=== PATIENT | female | born 1950 ===

== ENCOUNTER 2019-11-12 00:22 | Emergency (ER) | payer MEDICARE ==
[~2019-11-12] VITALS: Ht 162.6 cm; Wt 98.4 kg
[2019-11-12 00:45] LABS: BASOPHILS ABSOLUTE AUTO 0.05 K/mm3 (0.00-0.23); BASOPHILS PERCENT AUTO 0 % (0-2); EOSINOPHILS ABSOLUTE AUTO 0.05 K/mm3 (0.00-0.68); EOSINOPHILS PERCENT AUTO 0 % (0-6); Hematocrit 34.7 % (33.0-51.0); Hemoglobin 11.3 g/dL (11.5-16.0); IMMATURE GRAN ABSOLUTE AUTO 0.05 K/mm3 (0.00-0.10); IMMATURE GRAN PERCENT AUTO 0 % (0-1); LYMPHOCYTES ABSOLUTE AUTO 1.94 K/mm3 (0.84-5.20); LYMPHOCYTES PERCENT AUTO 17 % (21-46); MONOCYTES ABSOLUTE AUTO 0.81 K/mm3 (0.16-1.47); MONOCYTES PERCENT AUTO 7 % (4-13); Mean Corpuscular HGB 29.2 pg (26.0-34.0); Mean Corpuscular HGB Conc 32.6 g/dL (31.5-36.5); Mean Corpuscular Volume 90 fL (80-100); NEUTROPHILS ABSOLUTE AUTO 8.74 K/mm3 (1.96-9.15); NEUTROPHILS PERCENT AUTO 75 % (41-73); Platelet Count 291 K/mm3 (150-400); RDW Coefficient Variation 14.7 % (11.7-14.2); RDW Standard Deviation 48.7 fL (35.1-46.3); Red Blood Cell Count 3.87 M/mm3 (3.80-5.20); White Blood Cell Count 11.64 K/mm3 (4.00-11.30)
[2019-11-12 01:02] LABS: Albumin/Globulin Ratio 0.8 (0.8-1.8); Bilirubin, Total 0.1 mg/dL (0.1-1.0); Bun/Creatinine Ratio 18.1 (12.0-20.0); Calcium, Blood 8.6 mg/dL (8.5-10.1); Creatinine, Blood 1.82 mg/dL (0.40-1.00); Globulin, Blood 3.9 g/dL (2.2-4.0); Potassium, Blood 4.1 mmol/L (3.5-5.5); Total Protein, Blood 6.9 g/dL (6.4-8.2)
[2019-11-12] MEDS ORDERED: Metformin HCl1000 MG PO (01:20)
[2019-11-12] MEDS ORDERED: Metoprolol Tar100 MG PO (01:20)
[2019-11-12] MEDS ORDERED: AMLODIPINE BESY10 MG PO (01:20)
[2019-11-12] MEDS ORDERED: ZESTORETIC 20-121 EA PO (01:20)
[2019-11-12] MEDS ORDERED: SITA50T2 PO (01:20)
[2019-11-12] MEDS ORDERED: TOUJEO SOL300 UNIT/1 SC (01:21)
[2019-11-12] MEDS ORDERED: Humalog100 UNIT/3 SC (01:21)
[2019-11-12] MEDS ORDERED: ASPI325 PO (01:31)
[2019-11-12] MEDS ORDERED: Fish Oil 10001000 MG PO (01:32)
[2019-11-12] MEDS ORDERED: ROSUVASTATIN CA40 MG PO (01:34)
[2019-11-12 02:39] LABS: Source, Urine Voided
[2019-11-12 02:53] LABS: Bilirubin, Urine Neg (Neg); Blood, Urine 1+ (Neg); Glucose Qualitative, Urine Neg (Neg); Ketones, Urine Neg (Neg); Leukocyte Esterase, Urine 3+ (Neg); Nitrite, Urine Neg (Neg); Protein, Urine 2+ (Neg); Specific Gravity, Urine 1.015 (1.003-1.022); Urobilinogen, Urine NORM (Normal)
[2019-11-12 02:56] LABS: Appearance, Urine Hazy (Clear); Color, Urine Yellow (P-Yellow)
[2019-11-12 03:00] LABS: Bacteria Mod /hpf; Hyaline Casts 25-50 /lpf (0-2); Red Blood Cells, Urine Rare /hpf (0-2); Squamous Epithelial Cells Few /hpf (Few); White Blood Cells, Urine TNTC /hpf (0-5)
[2019-11-12] MEDS ORDERED: CEPH500 PO (05:06)
== END 2019-11-12 06:02 | disposition home or self-care (01) ==
LOC: ER 00:22
PROVIDERS: Emergency Medicine
DX: E11.65 Type 2 diabetes mellitus with hyperglycemia (principal); N39.0 Urinary tract infection, site not specified; I10 Essential (primary) hypertension; E78.5 Hyperlipidemia, unspecified; Z79.4 Long term (current) use of insulin; Z79.899 Other long term (current) drug therapy
CPT/HCPCS: 80053; 81001; 82947; 83690; 85025; 87086; 93005; 93010; 96365; 96375; 99285-25; J0696

== ENCOUNTER 2023-07-02 02:24 | Emergency (ER) | payer MEDICARE ==
[~2023-07-02] VITALS: Ht 162.6 cm; Wt 90.7 kg
[~2023-07-02 02:24] MED LIST: AMLODIPINE BESY10 MG PO; ASPI325 PO; CEPH500 PO; Fish Oil 10001000 MG PO; Humalog100 UNIT/3 SC; Metformin HCl1000 MG PO; Metoprolol Tar100 MG PO; ROSUVASTATIN CA40 MG PO; SITA50T2 PO; TOUJEO SOL300 UNIT/1 SC; ZESTORETIC 20-121 EA PO
[2023-07-02 02:32] VITALS: BP 164/82
[2023-07-02 02:53] LABS: BASOPHILS ABSOLUTE AUTO 0.06 K/mm3 (0.00-0.23); BASOPHILS PERCENT AUTO 1 % (0-2); EOSINOPHILS ABSOLUTE AUTO 0.14 K/mm3 (0.00-0.68); EOSINOPHILS PERCENT AUTO 1 % (0-6); Hematocrit 38.8 % (33.0-51.0); Hemoglobin 13.4 g/dL (11.5-16.0); IMMATURE GRAN ABSOLUTE AUTO 0.06 K/mm3 (0.00-0.10); IMMATURE GRAN PERCENT AUTO 1 % (0-1); LYMPHOCYTES ABSOLUTE AUTO 3.17 K/mm3 (0.84-5.20); LYMPHOCYTES PERCENT AUTO 25 % (21-46); MONOCYTES ABSOLUTE AUTO 0.77 K/mm3 (0.16-1.47); MONOCYTES PERCENT AUTO 6 % (4-13); Mean Corpuscular HGB 29.5 pg (26.0-34.0); Mean Corpuscular HGB Conc 34.5 g/dL (31.5-36.5); Mean Corpuscular Volume 85 fL (80-100); Mean Platelet Volume 9.3 fL (9.1-12.4); NEUTROPHILS ABSOLUTE AUTO 8.38 K/mm3 (1.96-9.15); NEUTROPHILS PERCENT AUTO 67 % (41-73); Platelet Count 347 K/mm3 (150-400); RDW Coefficient Variation 16.3 % (11.7-14.2); Red Blood Cell Count 4.55 M/mm3 (3.80-5.20); White Blood Cell Count 12.58 K/mm3 (4.00-11.30)
[2023-07-02 03:07] LABS: Base Excess Venous -0.4 mmol/L; Bicarbonate Venous 24.1 mmol/L (24.0-30.0); PCO2 Venous 38.6 mmHg (38-42); pH Blood Venous 7.41 (7.34-7.37)
[2023-07-02 03:12] LABS: Albumin, Blood 2.6 g/dL (3.4-5.0); Albumin/Globulin Ratio 0.7 (0.8-1.8); Bilirubin, Total 0.2 mg/dL (0.1-1.0); Bun/Creatinine Ratio 20.7 (12.0-20.0); Calcium, Blood 8.6 mg/dL (8.5-10.1); Creatinine, Blood 1.11 mg/dL (0.40-1.00); Globulin, Blood 3.8 g/dL (2.2-4.0); Potassium, Blood 3.3 mmol/L (3.5-5.5); Total Protein, Blood 6.4 g/dL (6.4-8.2)
[2023-07-02 03:36] LABS: Magnesium, Blood 1.9 mg/dL (1.6-2.4); Thyroid Stimulating Hormone 5.25 uIU/mL (0.360-4.800)
[2023-07-02 03:37] LABS: Phosphorus, Blood 2.7 mg/dL (2.5-4.9)
[2023-07-02 04:51] LABS: Source, Urine Clean Catch
[2023-07-02 04:55] LABS: Bilirubin, Urine Neg (Neg); Blood, Urine 2+ (Neg); Glucose Qualitative, Urine 1+ (Neg); Ketones, Urine Neg (Neg); Leukocyte Esterase, Urine 3+ (Neg); Nitrite, Urine Neg (Neg); Protein, Urine 3+ (Neg); Urobilinogen, Urine NORM (Normal)
[2023-07-02 04:57] LABS: Appearance, Urine Hazy (Clear); Color, Urine Pale Yellow (P-Yellow)
[2023-07-02 05:11] LABS: Bacteria Mod /hpf; Red Blood Cells, Urine 0-2 /hpf (0-2); Squamous Epithelial Cells Mod /hpf (Few)
[2023-07-02] MEDS ORDERED: CEPH500 PO (05:36)
== END 2023-07-02 06:07 | disposition home or self-care (01) ==
LOC: ER 02:24
PROVIDERS: Emergency Medicine
DX: E11.649 Type 2 diabetes mellitus with hypoglycemia without coma (principal); E87.6 Hypokalemia; N39.0 Urinary tract infection, site not specified; Z88.0 Allergy status to penicillin; Z88.8 Allergy status to other drugs, medicaments and biological substances; Z79.899 Other long term (current) drug therapy; Z79.84 Long term (current) use of oral hypoglycemic drugs; Z79.4 Long term (current) use of insulin; Z79.82 Long term (current) use of aspirin; I10 Essential (primary) hypertension; E78.5 Hyperlipidemia, unspecified
CPT/HCPCS: 71045; 80053; 81001; 82803; 83605; 83690; 83735; 84100; 84443; 85025; 87086; 87147; 93005; 93010; 93971; 99285-25; A9270

== ENCOUNTER 2024-06-04 02:04 | Emergency (ER) | payer MEDICARE ==
[~2024-06-04] VITALS: Ht 162.6 cm; Wt 76.7 kg
[2024-06-04] MEDS ORDERED: Dextrose 50% 50 ML Vial ONE (02:12)
[2024-06-04] MEDS ORDERED: Dextrose 50% 50 ML Syringe IV ONE (02:15)
[2024-06-04] MEDS ORDERED: Dextrose 10% 500 ML IV SCH (02:15)
[2024-06-04 03:42] LABS: Albumin, Blood 2.3 g/dL (3.4-5.0); Albumin/Globulin Ratio 0.6 (0.8-1.8); Bilirubin, Total 0.3 mg/dL (0.1-1.0); Bun/Creatinine Ratio 25.2 (12.0-20.0); Calcium, Blood 8.4 mg/dL (8.5-10.1); Creatinine, Blood 1.03 mg/dL (0.40-1.00); Globulin, Blood 3.9 g/dL (2.2-4.0); Potassium, Blood 3.6 mmol/L (3.5-5.5); Total Protein, Blood 6.2 g/dL (6.4-8.2)
[2024-06-04] MEDS ORDERED: Diflucan150 MG PO (03:56)
[2024-06-04] MEDS ORDERED: FARXIGA10 MG PO (03:57)
[2024-06-04] MEDS ORDERED: LISI20 PO (03:57)
[2024-06-04 07:00] VITALS: BP 163/65
[2024-06-05] MEDS ORDERED: Dextrose 10% 500 ML IV SCH (02:15)
== END 2024-06-04 07:47 | disposition home or self-care (01) ==
LOC: ER 02:04
PROVIDERS: Student in an Organized Health Care Education/Training Program
DX: T38.3X1A Poisoning by insulin and oral hypoglycemic [antidiabetic] drugs, accidental (unintentional), initial encounter (principal); E11.649 Type 2 diabetes mellitus with hypoglycemia without coma; E11.22 Type 2 diabetes mellitus with diabetic chronic kidney disease; I12.9 Hypertensive chronic kidney disease with stage 1 through stage 4 chronic kidney disease, or unspecified chronic kidney disease; N18.9 Chronic kidney disease, unspecified; I69.951 Hemiplegia and hemiparesis following unspecified cerebrovascular disease affecting right dominant side; Z88.0 Allergy status to penicillin; Z88.8 Allergy status to other drugs, medicaments and biological substances; Z79.84 Long term (current) use of oral hypoglycemic drugs; Z79.4 Long term (current) use of insulin; Z79.82 Long term (current) use of aspirin; Z79.899 Other long term (current) drug therapy
CPT/HCPCS: 80053; 82947; 96361; 96374; 99285-25; J7799

== ENCOUNTER 2024-06-15 09:58 | Observation (INO) | payer MEDICARE ==
[~2024-06-15] VITALS: Ht 162.6 cm; Wt 75.8 kg
[~2024-06-15 09:58] MED LIST changes: +Diflucan150 MG PO; +FARXIGA10 MG PO; +HUMALOG100 UNIT/1 SC; -Humalog100 UNIT/3 SC; +LISI20 PO; -TOUJEO SOL300 UNIT/1 SC; +TOUJEO SOL300 UNIT/2 SC
[2024-06-15] MEDS ORDERED: Dextrose 10% 500 ML IV SCH (10:20)
[2024-06-15] MEDS ORDERED: Dextrose 50% 50 ML Syringe IV ONE ×2 (10:20→13:05)
[2024-06-15] MEDS ORDERED: Dextrose 50% 50 ML Vial IV ONE ×2 (10:25→13:10)
[2024-06-15 11:24] LABS: BASOPHILS ABSOLUTE AUTO 0.06 K/mm3 (0.00-0.23); BASOPHILS PERCENT AUTO 1 % (0-2); EOSINOPHILS ABSOLUTE AUTO 0.04 K/mm3 (0.00-0.68); EOSINOPHILS PERCENT AUTO 0 % (0-6); Hematocrit 36.9 % (33.0-51.0); Hemoglobin 12.4 g/dL (11.5-16.0); IMMATURE GRAN ABSOLUTE AUTO 0.04 K/mm3 (0.00-0.10); IMMATURE GRAN PERCENT AUTO 0 % (0-1); LYMPHOCYTES ABSOLUTE AUTO 2.07 K/mm3 (0.84-5.20); LYMPHOCYTES PERCENT AUTO 20 % (21-46); MONOCYTES ABSOLUTE AUTO 0.53 K/mm3 (0.16-1.47); MONOCYTES PERCENT AUTO 5 % (4-13); Mean Corpuscular HGB 29.9 pg (26.0-34.0); Mean Corpuscular HGB Conc 33.6 g/dL (31.5-36.5); Mean Corpuscular Volume 89 fL (80-100); Mean Platelet Volume 10.3 fL (9.1-12.4); NEUTROPHILS PERCENT AUTO 74 % (41-73); Platelet Count 352 K/mm3 (150-400); RDW Coefficient Variation 16.2 % (11.7-14.2); RDW Standard Deviation 53.5 fL (35.1-46.3); Red Blood Cell Count 4.15 M/mm3 (3.80-5.20); White Blood Cell Count 10.34 K/mm3 (4.00-11.30)
[2024-06-15 11:40] LABS: Alanine Aminotransfer (ALT/SGP 22 U/L (12-78); Albumin, Blood 2.6 g/dL (3.4-5.0); Albumin/Globulin Ratio 0.6 (0.8-1.8); Alk Phos 80 U/L (50-136); Anion Gap 11 mmol/L (3-11); Aspartate Aminotrans (AST/SGOT 25 U/L (12-37); Bilirubin, Total 0.4 mg/dL (0.1-1.0); Blood Urea Nitrogen 24 mg/dL (8-24); Bun/Creatinine Ratio 25.1 (12.0-20.0); CO2, Blood 22 mmol/L (21-32); Calcium, Blood 8.9 mg/dL (8.5-10.1); Chloride, Blood 112 mmol/L (98-108); Creatinine, Blood 0.96 mg/dL (0.40-1.00); Ethanol (Alcohol), Blood, Med <3 mg/dL; Globulin, Blood 4.4 g/dL (2.2-4.0); Glomerular Filtration Rate 62 (60-); Glucose, Blood 199 mg/dL (70-99); Potassium, Blood 3.8 mmol/L (3.5-5.5); Sodium, Blood 141 mmol/L (136-145)
[2024-06-15 12:24] LABS: Source, Urine Clean Catch
[2024-06-15 12:28] LABS: Appearance, Urine Hazy (Clear); Bilirubin, Urine Neg (Neg); Blood, Urine 2+ (Neg); Glucose Qualitative, Urine 1+ (Neg); Ketones, Urine Neg (Neg); Leukocyte Esterase, Urine 3+ (Neg); Nitrite, Urine Neg (Neg); Protein, Urine 2+ (Neg); Specific Gravity, Urine 1.005 (1.003-1.022); Urobilinogen, Urine NORM (Normal)
[2024-06-15 12:32] LABS: Color, Urine Pale Yellow (P-Yellow)
[2024-06-15 12:33] LABS: Bacteria Many /hpf; Squamous Epithelial Cells Few /hpf (Few); White Blood Cells, Urine 25-50 /hpf (0-5)
[2024-06-15 12:38] LABS: U Amphetamine Screen Not Detected; U Barbituate Screen Not Detected; U Benzodiazapine Screen Not Detected; U Buprenorphine Screen Not Detected; U Cannabinoids Screen Not Detected; U Cocaine Screen Not Detected; U Methadone Screen Not Detected; U Methamphetamine Screen Not Detected; U Opiates Screen Not Detected; U Oxycodone Screen Not Detected; U Phencyclidine Screen Not Detected
[2024-06-15] MEDS ORDERED: FLU VACC TS2024-25(6MOS UP)/PF 45 MCG/0.5 ML SYRINGE IM SCH (13:40)
[2024-06-15 17:42] VITALS: BP 183/77
--- NOTE | 2024-06-15 18:37 | NUR ---
ADMIT NOTE PT ARRIVED TO PCU FROM ED VIA ED STRETCHER AT APPROX 1725. PT WAS SLID BY 4 STAFF FROM ED STRETCHER TO PCU BED. PT A&0X4. SP02>90% ON RA. TELEMETRY SHOWS NSR, HR 70'S. HTN NOTED, MD AWARE. CBG UPON ADMIT TO FLOOR WAS 100, Q1 CBG. D10 INFUSING PER EMAR. PURWIK TO SUCTION. PT DENIES PAIN. PT ABLE TO CALL , NOTIFY OF ROOM PLACEMENT. TO BRING IN PILL BOTTLES IN AM TO COMPLETE MED REC, PT DOES NOT REMEMBER DOSAGES. PT ORIENTED TO ROOM, CALL LIGHT. PT WAS THEN TRANSFERRED FROM PCU 3 TO PCU 17 WITH ALL PERSONAL BELONGINGS. CALL LIGHT IN REACH.
[2024-06-15 19:51] VITALS: BP 192/71
--- NOTE | 2024-06-15 19:56 | NUR ---
SPOKE WITH RESIDENT DR. JEREZ. INFORMED OF PT SUSTAINING HYPERTENSION WITH MOST RECENT SBP BEING >190. SPOKE BRIEFLY ABOUT SCHEDULED 2100 MEDICATIONS INCLUDING METOPROLOL AND AMLODIPINE. PT ASYMPTOMATIC, COMFORTABLE IN BED. NO ORDERS AT THIS TIME, WILL ADMINISTER 2100 MEDICATIONS AND CONTINUE TO MONITOR FOR CONTINUED HYPERTENSION.
[2024-06-15] MEDS ORDERED: Metoprolol Tartrate 50 MG Tab PO SCH (21:00)
[2024-06-15] MEDS ORDERED: AmLODIPine Besylate 5 MG Tab PO SCH (21:00)
[2024-06-15 21:12] VITALS: BP 177/66
--- NOTE | 2024-06-16 00:29 | NUR ---
CONVERSATION WITH DR. CHERRY. PT BLOOD SUGAR HAS CONTINUED TO TREND DOWN OVER TIME DESPITE D10 DRIP RUNNING AT 10 MLS/HR. WITH EXCEPTION OF ONE TIME PT DRANK SOME APPLE JUICE. PT REMAINS ASYMPTOMATIC, MOST RECENT READING 68. DR. CHERRY DIRECTED TO INCREASE D10 RATE TO 15 MLS/HR AND CONTINUE TO MONITOR.
[2024-06-16 00:33] VITALS: BP 174/67
[2024-06-16 03:23] VITALS: BP 150/59
--- NOTE | 2024-06-16 05:17 | NUR ---
SHIFT SUMMARY. PRIMARY FOCUS OF SHIFT HAS BEEN BLOOD SUGAR MANAGEMENT. D10 HAS BEEN RUNNING THROUGHOUT GRAND MAJORITY OF SHIFT. TITRATED FROM 10 MLS/HR TO 15 MLS/HR TO 25 MLS/HR TO NOW BEING SHUT OFF. FOR FIRST HALF OF SHIFT, BLOOD SUGAR CONTINUED TO TREND DOWN DESPITE TITRATION OF DRIP. PT WAS ABLE TO TOLERATE SOME PO INTAKE INCLUDING SOME APPLE JUICE, PEANUT BUTTER, MILK, AND CHEESE WHICH HELPED AT TIMES. MORE RECENTLY WHILE D10 WAS RUNNING AT 25 MLS/HR, CBG HAS REACHED 209. SPOKE WITH DR. CHERRY AND SHUT OFF D10 DRIP TO SEE HOW BLOOD SUGAR TRENDS WITHOUT DRIP. SHIFT HAS OTHERWISE BEEN UNREMARKABLE. BLOOD PRESSURE ELEVATED EARLY IN SHIFT, PT ASYMPOMATIC. SPOKE WITH DR. CHERRY, NOT CONCERNED AT THAT TIME AND BP HAS SINCE COME DOWN TO SBP IN THE 150s. VITALS OTHERWISE STABLE. PUREWICK IN PLACE THROUGHOUT SHIFT. URINE OUTPUT CHARTED APPROPRIATELY. NO PAIN REPORTED. PT EXCEEDINGLY PLEASANT, AT TIMES SLOW TO RESPOND AND POOR HISTORIAN. BED LOCKED IN LOWEST POSITION. CALL LIGHT LEFT WITHIN REACH. CONTINUING TO MONITOR.
[2024-06-16 06:59] LABS: Bun/Creatinine Ratio 25.2 (12.0-20.0); Calcium, Blood 8.6 mg/dL (8.5-10.1); Creatinine, Blood 0.91 mg/dL (0.40-1.00); Potassium, Blood 3.6 mmol/L (3.5-5.5)
[2024-06-16 07:08] LABS: BASOPHILS ABSOLUTE AUTO 0.08 K/mm3 (0.00-0.23); BASOPHILS PERCENT AUTO 1 % (0-2); EOSINOPHILS ABSOLUTE AUTO 0.07 K/mm3 (0.00-0.68); EOSINOPHILS PERCENT AUTO 1 % (0-6); Hematocrit 31.6 % (33.0-51.0); IMMATURE GRAN ABSOLUTE AUTO 0.02 K/mm3 (0.00-0.10); IMMATURE GRAN PERCENT AUTO 0 % (0-1); LYMPHOCYTES ABSOLUTE AUTO 3.17 K/mm3 (0.84-5.20); LYMPHOCYTES PERCENT AUTO 30 % (21-46); MONOCYTES ABSOLUTE AUTO 0.82 K/mm3 (0.16-1.47); MONOCYTES PERCENT AUTO 8 % (4-13); Mean Corpuscular HGB 30.1 pg (26.0-34.0); Mean Corpuscular HGB Conc 34.8 g/dL (31.5-36.5); Mean Corpuscular Volume 87 fL (80-100); NEUTROPHILS ABSOLUTE AUTO 6.58 K/mm3 (1.96-9.15); NEUTROPHILS PERCENT AUTO 61 % (41-73); Platelet Count 341 K/mm3 (150-400); RDW Coefficient Variation 15.9 % (11.7-14.2); RDW Standard Deviation 50.3 fL (35.1-46.3); Red Blood Cell Count 3.65 M/mm3 (3.80-5.20); White Blood Cell Count 10.74 K/mm3 (4.00-11.30)
[2024-06-16 08:11] VITALS: BP 180/69
[2024-06-16] MEDS ORDERED: Enoxaparin 40 MG/0.4 ML SYR SC SCH (09:00)
[2024-06-16] MEDS ORDERED: Aspirin 325 MG Tab PO SCH (09:00)
[2024-06-16] MEDS ORDERED: Rosuvastatin Calcium 10 MG Tab PO SCH (09:00)
[2024-06-16] MEDS ORDERED: Empagliflozin 25 MG TAB PO SCH (09:00)
[2024-06-16] MEDS ORDERED: Fluconazole 100 MG Tab PO SCH (09:00)
[2024-06-16] MEDS ORDERED: Lisinopril 20 MG Tab PO SCH (09:00)
--- NOTE | 2024-06-16 09:35 | NUR ---
PATIET ALERT AND ORIENTED X4. PERRLA. MOVING AL EXTREMITIES EQUALLY. WEAKNESS NOTED TO BLE. HISTORY OF CVA WITH REPORTED RIGHT SIDED WEAKNESS. POOR VISION AT BASELINE. UP WITH FWW AND ONE PERSON ASSIST. BLE NEUROPATHY. ON ROOM AIR SATING ABOVE 95%. LUNG SOUNDS CLEAR. DENIES SOB/COUGH. TELE SHOWING SR WITH HR 80'S. SBP ELEVATED. PPP. NO EDEMA NOTED. DENIES CHEST PAIN/PRESSURE/PALPIATIONS. IV SALINE LOCKED. DENIES ABDOMINAL PAIN/NAUSEA. TOLERATING DIET, ALTHOUGH SHE ONLY ATE A SMALL AMOUNT OF BREAKFAST. SPEECH THERAPY IN THIS AM. PUREWICK IN PLACE DUE TO SOME INCONTINENCE. ATTENDS IN PLACE. STATES IT IS NORMAL FOR HER TO HAVE A BOWEL MOVEMENT EVERY COUPLE OF DAYS. SKIN OVERALL C/D/I. PATIENT STATES HER VALENCIA WILL BE IN TO VISIT SOON. BLOOD SUGAR CHECKS EVERY HOUR. CALL LIGHT IN REACH. DENIES NEEDS AT THIS TIME.
--- NOTE | 2024-06-16 10:39 | NUR ---
VALENCIA AT BEDSIDE AND UPDATED BY THIS RN. STATES IS AT BASELINE MENTATION. PLAN FOR PHYSICAL THERAPY EVAL AT THIS TIME. Q1 BLOOD SUGAR CHECKS CONTINUE.
[2024-06-16] MEDS ORDERED: Insulin Human Lispro 100 Units/ML 3ML Syringe SC SCH (11:30)
[2024-06-16 12:03] VITALS: BP 160/59
--- NOTE | 2024-06-16 12:27 | NUR ---
VALENCIA TO BRING IN HOME INSULIN. AFTERNOON VITALS STABLE. BLOOD SUGAR CHECKS NOW ACHS. MEDICAL STATUS WITH TELE. PHYSICAL THERAPY IN ROOM TO WORK WITH PATIENT. UP TO BATHROOM, ATTENDS CHANGE. CALL LIGHT IN REACH.
[2024-06-16] MEDS ORDERED: ASPI81CH PO (13:34)
[2024-06-16] MEDS ORDERED: FISH OIL 1,0001 EA10 PO (13:35)
[2024-06-16] MEDS ORDERED: PROBIOTIC1 EA14 PO (13:35)
[2024-06-16 15:18] VITALS: BP 144/78
--- NOTE | 2024-06-16 15:42 | NUR ---
PATIENT SEEMS TO BE MORE CONFUSED THIS AFTERNOON. STILL ABLE TO ANSWER ORIENTING QUESTIONS AND DETAILS OF WHY SHE IS HERE. CONTINUES TO BE POOR HISTORIAN WITH INSULIN AT HOME. NEW CONFUSION SURROUNDING THINKING GRANDSONS ARE IN ROOM, CALLING OUR FOR THEM, AT TIMES BEING REPETATIVE WITH QUESTIONS AND REPORTING SOME "SPIDER LOOKING WEBS" ON CLOCK IN ROOM. AT BEDSIDE AND REPORTS SHE IS FORGETFUL AT HOME BUT NOT LIKE HOW SHE IS PRESENTING NOW. PUPILS CONTINUE TO BE ROUND AND REACTIVE. PATIENT IS ABLE TO FOLLOW ALL COMMANDS. UP WALKING WITH STAFF TO BATHROOM. NO SPEECH IMPAIRMENTS OR FACIAL DROOP. NO NEW INCREASED WEAKNESS OR NUMBNESS/TINGLING. THIS RN REPORTED ABOVE TO DR. LUCIANO. NO NEW ORDERS AT THIS TIME FOR THIS RN TO PLACE. REMAINS AT BEDSIDE. CALL LIGHT IN REACH. BED ALARM IN PLACE.
--- NOTE | 2024-06-16 16:46 | NUR ---
PATIENT TO MRI AT THIS TIME
[2024-06-16] MEDS ORDERED: INSULIN GLARGINE 300 UNIT/ML SC SCH (18:00)
--- NOTE | 2024-06-16 18:19 | NUR ---
SHIFT SUMMARY: MRI COMPLETED. REMAINS ON ROOM AIR. TELE CONTINUES TO SHOW SR. VITAL SIGNS STABLE. POOR APPEATITE. WENT HOME FOR NIGHT AND PATIENT ALREADY MISSING HIM. PATIENT WANTING TO GO HOME. THIS RN REMINDED ON NEW INSULIN DOSE AND MONITORING BLOOD SUGAR. PATIENT UNDERSTANDING. UP TO BATHROOM WITH FWW AND 1 PERSON ASSIST. CALL LIGHT IN REACH. DENIES NEEDS.
--- NOTE | 2024-06-16 23:14 | NUR ---
ASSUMPTION OF CARE: PT WAS SITTING IN CHAIR ADAMANT THAT SHE WAS GOING HOME AND SHE KNEW "THIS IS ALL A SCAM AND I WILL NOT BE KEPT PRISONER HERE". SHE HAD ALREADY REMOVED HER IV AND WAS REFUSING ALL CARE INCLUDING TELE, PULSE OX, BP, OR EVEN LISTENING TO HER LUNGS. AFTER GINNING OPERATOR, FRANCK, SPOKE WITH HER SHE ALLOWED ME TO TAKE A CBG (230) BUT WOULD NOT ALLOW ANY MEDS BECAUSE SHE "DOESN'T TRUST THIS FACILITY OR ANYONE IN IT". SHE INSISTED ON CALLING HER , VALENCIA, AND TOLD HIM TO COME AND GET HER AND TAKE HER HOME. WHILE WE WAITED FOR HIM TO ARRIVE SHE GOT PARTIALLY DRESSED AND WAS WALKING AROUND THE HALLS ALONE, SHE WAS BROUGHT BACK TO HER ROOM TO WAIT (NEVER STAYED IN THERE). AT 2044 I SAW HERE WALKING DOWN THE JAIN WITH HER AND HER BELONGINGS SAYING SHE WAS LEAVING. I LET DR CHERRY KNOW THAT THEY WERE WAITING THE JAIN FOR HIM TO SIGN HER OUT AMA. HE AND FRANCK SPOKE WITH THE PT AND HER RE: RISKS FOR LEAVING AMA AND WHY WE WOULD LIKE HER TO STAY. SHE STILL OPTED TO SIGN OUT AMA, HER ACKNOWLEDGED THE RESPONSIBILITY OF HER, THE FORM WAS SIGNED AND THEY LEFT.
== END 2024-06-16 20:50 | disposition home or self-care (01) ==
LOC: ER 09:58 → ERHOLD 09:59 → PCU 17:30
PROVIDERS: Student in an Organized Health Care Education/Training Program; ADMIT Internal Medicine
DX: E11.649 Type 2 diabetes mellitus with hypoglycemia without coma (principal); E11.22 Type 2 diabetes mellitus with diabetic chronic kidney disease; I12.9 Hypertensive chronic kidney disease with stage 1 through stage 4 chronic kidney disease, or unspecified chronic kidney disease; N18.4 Chronic kidney disease, stage 4 (severe); E78.5 Hyperlipidemia, unspecified; E66.9 Obesity, unspecified; Z88.8 Allergy status to other drugs, medicaments and biological substances; Z88.1 Allergy status to other antibiotic agents
CPT/HCPCS: 36415; 70450; 70496; 70498; 70551; 80048; 80053; 80320; 81001; 82947; 85025; 87077; 87086; 87186; 92610; 93005; 93010; 96372; 97110; 97161; 97530; 99285-25; A9270; G0378; J1650; J7799; Q9967